=== PATIENT | female | born 1950 | race Caucasian/White ===

== ENCOUNTER 2023-02-06 05:43 | Day surgery (SDC) | payer MEDICARE ==
[2023-02-04 12:24] VITALS: BMI 24.7
[2023-02-06] MEDS ORDERED: Lidocaine 2% 6 ML (Jelly) SYR ONE (06:33)
[2023-02-06] MEDS ORDERED: EPINEPHrine 1 MG/ML VIAL ONE (06:33)
[2023-02-06] MEDS ORDERED: Sevoflurane 250 ML INH ANEST BOTTLE ONE (06:34)
[2023-02-06] MEDS ORDERED: Bupivacaine/Epinephrine 0.25% 30 ML VIAL ONE (06:37)
[2023-02-06] MEDS ORDERED: PROPOFOL 20 ML ONE (07:11)
[2023-02-06] MEDS ORDERED: Fentanyl 250 MCG/5 ML VIAL ONE (07:11)
[2023-02-06] MEDS ORDERED: ceFOXitin 1 GM VIAL ONE (07:19)
[2023-02-06] MEDS ORDERED: Glycopyrrolate 0.2 MG/ML 5 ML SYRINGE ONE (08:00)
[2023-02-06] MEDS ORDERED: Ondansetron PF 4 MG/2 ML Vial ONE (08:02)
[2023-02-06] MEDS ORDERED: PHENYLEPHRINE-NS 100 MCG/ML 10 ML SYRINGE ONE (08:07)
[2023-02-06] MEDS ORDERED: HYDROcodone/Acetaminophen 5/325 mg Tablet PO PRN ×2 (08:15)
== END 2023-02-06 09:10 | disposition home or self-care (01) ==
LOC: CSHSDC 05:43
PROVIDERS: ATTEND Surgery
PROC: 06BY0ZC Excision of Hemorrhoidal Plexus, Open Approach (ICD-10-PCS; principal; 2023-02-06)
DX: K64.4 Residual hemorrhoidal skin tags (principal); K64.8 Other hemorrhoids; I10 Essential (primary) hypertension; I25.10 Atherosclerotic heart disease of native coronary artery without angina pectoris; Z91.041 Radiographic dye allergy status
CPT/HCPCS: 88304; J0171; J0694; J2405; J2704; J3010